=== PATIENT | male | born 1970 | race African-American/Black ===

== ENCOUNTER 2020-05-07 08:03 | Emergency (ER) | payer OTHER ==
[~2020-05-07] VITALS: Ht 182.9 cm; Wt 89.1 kg
[2020-05-07 09:56] VITALS: BP 125/81
== END 2020-05-07 10:00 | disposition home or self-care (01) ==
LOC: ER 08:03
DX: F10.129 Alcohol abuse with intoxication, unspecified (principal); Y90.9 Presence of alcohol in blood, level not specified